=== PATIENT | female | born 1940 | race Caucasian/White ===

== ENCOUNTER 2017-09-23 11:44 | Emergency (ER) | payer OTHER ==
[~2017-09-23] VITALS: Ht 162.6 cm; Wt 60.0 kg
[~2017-09-23 11:44] MED LIST: ALPRAZOLAM0.25 M2 PO; ALPRAZOLAM0.5 MG PO; ALPRAZOLAM1 MG PO; ASPIRIN81 M2 PO; ATROVENT 00.5 MG/2.5 IH; BABY ASPIRIN81 M1 PO; BACTRIM,SEPT1 TABLET PO; BLINK BOTH EYES; BROVANA15 MCG/2 M IH; BUDESONIDE0.25 MG/2 IH; CEFTIN500 MG PO; CIPRO500 MG PO; CIPROFLOXACIN500 M1 PO; COMPAZINE10 MG PO; CRANBERRY200 MG PO; CRANBERRY300 MG PO; CYANOCOBALAM1000 MCG PO; DAILY VITAMIN1 EAC8 PO; DECADRON4 MG PO; DIAZEPAM5 MG PO; ENDOCET 5-3251 EACH PO; FENOFIBRATE160 M1 PO; FLAGYL500 MG PO; FUROSEMIDE20 MG PO; FUROSEMIDE40 MG PO; GEMFIBROZIL600 MG PO; GERITOL COMP1 TABLET PO; GUAIFENESIN WI120 ML PO; HEALTHY HEART1 EAC1 PO; IPRATROPIU0.2 MG/1 M IH; LASIX40 MG PO; LEVAQUIN250 MG PO; LISINOPRIL5 MG PO; LMTHF-PYRIDOXI1 EACH PO; LOPRESSOR25 MG PO; LOW DOSE ASPIRI81 M1 PO; Levaquin PO; MAGNESIUM SULFATE; METOPROLOL PO; METOPROLOL SUCC25 MG PO; METOPROLOL TART25 MG PO; METRONIDAZOLE500 MG PO; MULTIPLE VITAM1 EAC1 PO; Magnesium PO; NICOTINE PATCH1 EAC2 TD; NITROFURANTOIN100 M3 PO; NITROFURANTOIN100 MG PO; OMEPRAZOLE40 M1 PO; PERCOCET 5/31 TABLET PO; PLAVIX75 MG PO; PRAVACHOL20 MG PO; PRAVACHOL40 MG PO; PRAVASTATIN SOD40 MG PO; PRILOSEC40 MG PO; PROAIR HFA8.5 GM IH; PROVENTIL,2.5 MG/3 M IH; PULMICORT0.25 MG/1 IH; ROBITUSSIN AC,T10 ML PO; ST. JOSEPH ASPI81 MG PO; TARCEVA150 MG PO; TYLENOL EXTRA500 MG PO; URO-MAG140 MG PO; VALIUM5 MG PO; VITAMIN B-121000 MCG PO; VITAMIN B-6100 MG PO; VITAMIN D2000 INTUN PO; VITAMIN D33000 UNIT PO; XANAX0.5 MG PO; XANAX1 MG PO; ZANTAC150 MG PO; ZESTRIL5 MG PO; ZOFRAN4 MG PO; [UNRECOGNIZED DRUG - CODE] PO; predniSONE PO
[2017-09-23 12:07] VITALS: BP 91/56
[2017-09-23] MEDS ORDERED: DECADRON4 MG PO (22:43)
[2017-09-23] MEDS ORDERED: CARTIA XT120 MG PO (22:43)
[2017-09-23] MEDS ORDERED: BACTRIM,SEPT1 TABLE1 PO (22:43)
[2017-09-23] MEDS ORDERED: LOPRESSOR25 MG PO (22:44)
[2017-09-23] MEDS ORDERED: ASCORBIC ACID100 MG PO (22:46)
== END 2017-09-23 13:30 | disposition left against medical advice (07) ==
LOC: EME 11:44
DX: C34.90 Malignant neoplasm of unspecified part of unspecified bronchus or lung (principal); R26.9 Unspecified abnormalities of gait and mobility; R20.0 Anesthesia of skin; R29.810 Facial weakness; M79.604 Pain in right leg; Z92.3 Personal history of irradiation; Z53.21 Procedure and treatment not carried out due to patient leaving prior to being seen by health care provider
CPT/HCPCS: 99281

== ENCOUNTER 2017-09-23 14:58 | Inpatient (IN) | payer OTHER ==
[~2017-09-23] VITALS: Ht 160 cm; Wt 68.0 kg
[2017-09-23 17:12] LABS: HEMATOCRIT 37.8 % (36.0-46.0); MCH 29.8 PG (29.0-34.0); MCHC 33.1 G/DL (30.0-36.0); RBC DIS.WIDTH-CV 15.1 % (11.8-14.6); RBC DIS.WIDTH-SD 49.6 % (39-53); WHITE BLOOD COUNT 7.4 K/uL (4.1-10.2)
[2017-09-23 17:17] LABS: INTER. NORMALIZED RATIO 1.1
[2017-09-23 17:22] LABS: CHLORIDE 92 mEq/L (99-109); POTASSIUM 4.9 mEq/L (3.7-5.4); SODIUM 137 mEq/L (136-147)
[2017-09-23 17:23] LABS: HEMOGLOBIN 12.5 G/DL (11.9-15.5); MAGNESIUM 1.8 mg/dL (1.3-2.7)
[2017-09-23 17:24] LABS: GLUCOSE 272 mg/dL (70-99)
[2017-09-23 17:28] LABS: CREATININE 0.7 mg/dL (0.6-1.3); GFR ESTIMATE (CALCULATED) > 59 mL/min/
[2017-09-23 17:29] LABS: UREA NITROGEN (BUN) 31 mg/dL (9-23)
[2017-09-23 17:34] LABS: TROP-I INTERPRETATION NEGATIVE; TROPONIN-I 0.07 ng/mL (0.0-0.30)
[2017-09-23 17:54] LABS: ABS NEUTROPHIL COUNT 7.1; ANISOCYTOSIS 1+; BAND NEUTROPHILS 18.3 % (0-8.0); EOSINOPHIL ABS CT 0; LYMPHOCYTES 1.7 % (15.0-45.0); MONOCYTES 2.6 % (0-9.0); PLAT.SUFFICIENCY VERY DECREASED; SEG.NEUTROPHILS 77.4 % (46.0-76.0)
[2017-09-23 17:55] LABS: PLATELET COUNT 45 K/uL (156-360)
[2017-09-23] MEDS ORDERED: DECADRON4 MG PO (22:43)
[2017-09-23] MEDS ORDERED: BACTRIM,SEPT1 TABLE1 PO (22:43)
[2017-09-23] MEDS ORDERED: CARTIA XT120 MG PO (22:43)
[2017-09-23] MEDS ORDERED: LOPRESSOR25 MG PO (22:44)
[2017-09-23] MEDS ORDERED: ASCORBIC ACID100 MG PO (22:46)
[2017-09-24 05:10] VITALS: BP 107/57
[2017-09-24 05:45] LABS: HEMATOCRIT 38.7 % (36.0-46.0); MCH 28.6 PG (29.0-34.0); MCV 92.1 FL (83-99); RBC DIS.WIDTH-CV 15.3 % (11.8-14.6); RBC DIS.WIDTH-SD 51.9 % (39-53); WHITE BLOOD COUNT 7.2 K/uL (4.1-10.2)
[2017-09-24 05:57] LABS: IMM.PLATELET FRACTION 5.1 (1-7); PLATELET COUNT 50 K/uL (156-360)
[2017-09-24 06:00] LABS: APPEARANCE CLOUDY ((CLEAR)); BILIRUBIN NEGATIVE; BLOOD SMALL; COLOR YELLOW ((YELLOW)); GLUCOSE (STRIP) 50; KETONES NEGATIVE; LEUKOCYTES LARGE; NITRITE NEGATIVE; PROTEIN (STRIP) 100
[2017-09-24 06:19] LABS: CHLORIDE 100 MEQ/L (99-109); CREATININE 0.6 MG/DL (0.6-1.3); GFR ESTIMATE (CALCULATED) > 59 mL/min/; SODIUM 143 MEQ/L (136-147); UREA NITROGEN (BUN) 32 mg/dL (9-23)
[2017-09-24 06:22] LABS: GLUCOSE 133 mg/dL (70-99)
[2017-09-24 06:41] LABS: SPECIFIC GRAVITY 1.059 (1.000-1.030)
[2017-09-24 06:56] LABS: BACTERIA 2+ /HPF; CALCIUM OXALATE CRYSTALS 3+ /HPF; CALCIUM PHOSPHATE CRYSTALS 2+; EPITHELIAL CELLS NONE SEEN /HPF; MUCUS TRACE /LPF; RED BLOOD CELLS TNTC /HPF (0-5); TRIPLE PHOSPHATE CRYSTALS 2+ /HPF; WHITE BLOOD CELLS TNTC /HPF (0-5)
[2017-09-24 11:05] VITALS: BP 101/55
[2017-09-24 16:49] VITALS: BP 103/61
[2017-09-24 19:10] VITALS: BP 102/55
[2017-09-24 23:07] VITALS: BP 113/62
[2017-09-25 03:11] VITALS: BP 112/55
[2017-09-25 05:32] LABS: HEMATOCRIT 37.4 % (36.0-46.0); HEMOGLOBIN 11.9 G/DL (11.9-15.5); MCH 29.4 PG (29.0-34.0); MCHC 31.8 G/DL (30.0-36.0); MCV 92.3 FL (83-99); RBC DIS.WIDTH-CV 15.5 % (11.8-14.6); RBC DIS.WIDTH-SD 52.7 % (39-53); RED BLOOD COUNT 4.05 M/uL (3.80-5.20); WHITE BLOOD COUNT 6.7 K/uL (4.1-10.2)
[2017-09-25 06:01] LABS: CHLORIDE 97 MEQ/L (99-109); CREATININE 0.5 MG/DL (0.6-1.3); GFR ESTIMATE (CALCULATED) > 59 mL/min/; GLUCOSE 201 mg/dL (70-99); POTASSIUM 5.6 MEQ/L (3.7-5.4); SODIUM 141 MEQ/L (136-147); UREA NITROGEN (BUN) 35 mg/dL (9-23)
[2017-09-25 06:43] LABS: IMM.PLATELET FRACTION 4.9 (1-7); PLATELET COUNT 41 K/uL (156-360)
[2017-09-25 06:44] LABS: PLAT.SUFFICIENCY DECREASED
[2017-09-25 07:15] VITALS: BP 141/58
[2017-09-25 11:25] VITALS: BP 109/56
[2017-09-25 11:49] LABS: CHLORIDE 94 MEQ/L (99-109); POTASSIUM 5.3 MEQ/L (3.7-5.4); SODIUM 139 MEQ/L (136-147)
[2017-09-25 12:00] LABS: CREATININE 0.6 MG/DL (0.6-1.3); GFR ESTIMATE (CALCULATED) > 59 mL/min/; UREA NITROGEN (BUN) 41 mg/dL (9-23)
[2017-09-25 12:04] LABS: GLUCOSE 375 mg/dL (70-99)
[2017-09-25 15:55] VITALS: BP 87/49
[2017-09-25 20:00] VITALS: BP 96/55
[2017-09-25 23:54] VITALS: BP 90/55
[2017-09-26 03:52] VITALS: BP 88/53
[2017-09-26 05:32] LABS: HEMOGLOBIN 11.3 G/DL (11.9-15.5); MCH 28.7 PG (29.0-34.0); MCHC 31.4 G/DL (30.0-36.0); MCV 91.4 FL (83-99); RBC DIS.WIDTH-CV 15.4 % (11.8-14.6); RBC DIS.WIDTH-SD 51.6 % (39-53); RED BLOOD COUNT 3.94 M/uL (3.80-5.20); WHITE BLOOD COUNT 6.7 K/uL (4.1-10.2)
[2017-09-26 06:15] LABS: CHLORIDE 91 MEQ/L (99-109); CREATININE 0.7 MG/DL (0.6-1.3); GFR ESTIMATE (CALCULATED) > 59 mL/min/; GLUCOSE 375 mg/dL (70-99); POTASSIUM 5.1 MEQ/L (3.7-5.4); SODIUM 139 MEQ/L (136-147); UREA NITROGEN (BUN) 44 mg/dL (9-23)
[2017-09-26 06:59] LABS: IMM.PLATELET FRACTION 5.8 (1-7); PLAT.SUFFICIENCY DECREASED; PLATELET COUNT 43 K/uL (156-360)
[2017-09-26 08:22] VITALS: BP 108/71
[2017-09-26 11:05] VITALS: BP 92/56
[2017-09-26 15:55] VITALS: BP 88/57
[2017-09-26 20:00] VITALS: BP 108/69
[2017-09-27 00:54] VITALS: BP 111/54
[2017-09-27 04:10] VITALS: BP 94/52
[2017-09-27 07:15] VITALS: BP 104/56
[2017-09-27 12:13] VITALS: BP 94/51
[2017-09-27 15:52] VITALS: BP 102/74
[2017-09-27 19:00] VITALS: BP 98/53
[2017-09-28 00:13] VITALS: BP 99/58
[2017-09-28 03:34] VITALS: BP 95/55
[2017-09-28 08:13] VITALS: BP 114/61
[2017-09-28 08:44] LABS: BASOPHIL (%) 0.3 % (0-1); EOSINOPHIL (%) 0 % (0-5); HEMATOCRIT 35.1 % (36.0-46.0); HEMOGLOBIN 11.1 G/DL (11.9-15.5); IMMATURE GRANULOCYTE (%) 2.3 % (0.0-0.7); LYMPHOCYTE (%) 1.4 % (15-42); LYMPHOCYTE COUNT 0.1 K/uL (1.0-2.8); MCHC 31.6 G/DL (30.0-36.0); MCV 94.9 FL (83-99); MONOCYTE (%) 4.3 % (3-12); MONOCYTE COUNT 0.3 K/uL (0-0.8); NEUTROPHIL (%) 91.7 % (45-76); NEUTROPHIL COUNT 6.3 K/uL (1.8-6.4); RBC DIS.WIDTH-CV 15.1 % (11.8-14.6); RBC DIS.WIDTH-SD 52.6 % (39-53); WHITE BLOOD COUNT 6.9 K/uL (4.1-10.2)
[2017-09-28 09:44] LABS: IMM.PLATELET FRACTION 5.1 (1-7); PLAT.SUFFICIENCY DECREASED; PLATELET COUNT 45 K/uL (156-360)
[2017-09-28 11:00] VITALS: BP 97/56
[2017-09-28 15:55] VITALS: BP 95/53
[2017-09-28 19:00] VITALS: BP 108/56
[2017-09-29 00:11] VITALS: BP 115/64
[2017-09-29 05:31] VITALS: BP 120/62
[2017-09-29 09:04] VITALS: BP 115/48
[2017-09-29 11:10] LABS: BASOPHIL (%) 0.3 % (0-1); EOSINOPHIL (%) 0 % (0-5); HEMATOCRIT 34.9 % (36.0-46.0); IMMATURE GRANULOCYTE (%) 1.9 % (0.0-0.7); LYMPHOCYTE (%) 2.1 % (15-42); LYMPHOCYTE COUNT 0.2 K/uL (1.0-2.8); MCH 29.5 PG (29.0-34.0); MCHC 31.5 G/DL (30.0-36.0); MCV 93.6 FL (83-99); MONOCYTE COUNT 0.3 K/uL (0-0.8); NEUTROPHIL (%) 91.7 % (45-76); NEUTROPHIL COUNT 6.9 K/uL (1.8-6.4); RBC DIS.WIDTH-CV 15.1 % (11.8-14.6); RBC DIS.WIDTH-SD 51.9 % (39-53); RED BLOOD COUNT 3.73 M/uL (3.80-5.20); WHITE BLOOD COUNT 7.5 K/uL (4.1-10.2)
[2017-09-29 11:41] LABS: CHLORIDE 89 MEQ/L (99-109); CREATININE 0.5 MG/DL (0.6-1.3); GFR ESTIMATE (CALCULATED) > 59 mL/min/; POTASSIUM 5.2 MEQ/L (3.7-5.4); SODIUM 140 MEQ/L (136-147); UREA NITROGEN (BUN) 45 mg/dL (9-23)
[2017-09-29 11:45] VITALS: BP 117/60
[2017-09-29 11:45] LABS: CARBON DIOXIDE (BICARBONATE) > 40.0 MEQ/L (20-31); GLUCOSE 436 mg/dL (70-99)
[2017-09-29 11:49] LABS: IMM.PLATELET FRACTION 4.5 (1-7); PLAT.SUFFICIENCY VERY DECREASED; PLATELET COUNT 44 K/uL (156-360)
[2017-09-29 12:08] LABS: BASE EXCESS 23.1 mEq/L (-3 to +3); CARBOXY HGB 2.2 % (0-5); METHEMOGLOBIN 1.3 % (0-1.5); PCO2 82 mm Hg (35-45); PO2 67 mm Hg (80-100); pH 7.41 (7.35-7.45)
[2017-09-29 12:09] LABS: COMMENTS - BLOOD GASES A+C+; DEVICE NC; O2 FLOW 3 L/MIN; SITE LR; TOTAL RESP RATE 25 resp/min
[2017-09-29 13:09] LABS: Estimated Average Glucose 180 mg/dL (70-123); HEMOGLOBIN A1c (GLYCOHEMOGLOB) 7.9 % HGB (Below 5.7)
[2017-09-29 15:33] VITALS: BP 114/67
[2017-09-29 19:20] VITALS: BP 105/58
[2017-09-30] VITALS (7 sets, daily range): BP systolic 101–149; BP diastolic 55–78
[2017-10-01] VITALS (20 sets, daily range): BP systolic 78–128; BP diastolic 48–82
[2017-10-01 01:49] LABS: HEMATOCRIT 35.3 % (36.0-46.0); HEMOGLOBIN 11.2 G/DL (11.9-15.5); MCH 29.2 PG (29.0-34.0); MCHC 31.7 G/DL (30.0-36.0); MCV 92.2 FL (83-99); PLATELET COUNT 51 K/uL (156-360); RBC DIS.WIDTH-CV 15.1 % (11.8-14.6); RBC DIS.WIDTH-SD 51.2 % (39-53); RED BLOOD COUNT 3.83 M/uL (3.80-5.20)
[2017-10-01 01:58] LABS: CHLORIDE 85 mEq/L (99-109); POTASSIUM 5.3 mEq/L (3.7-5.4); SODIUM 138 mEq/L (136-147)
[2017-10-01 02:00] LABS: TOTAL PROTEIN 5.1 g/dL (6.4-8.3)
[2017-10-01 02:01] LABS: GLUCOSE 207 mg/dL (70-99)
[2017-10-01 02:02] LABS: TOTAL BILIRUBIN 0.5 mg/dL (0.0-1.0)
[2017-10-01 02:04] LABS: ALKALINE PHOSPHATASE 63 IU/L (3-129); CREATININE 0.7 mg/dL (0.6-1.3); GFR ESTIMATE (CALCULATED) > 59 mL/min/
[2017-10-01 02:05] LABS: AST (GOT) 22 IU/L (2-34); UREA NITROGEN (BUN) 42 mg/dL (9-23)
[2017-10-01 02:07] LABS: ALT (GPT) 45 IU/L (3-49)
[2017-10-01 02:08] LABS: CARBON DIOXIDE (BICARBONATE) > 40.0 mEq/L (20-31)
[2017-10-01 02:12] LABS: TROP-I INTERPRETATION NEGATIVE; TROPONIN-I 0.26 ng/mL (0.0-0.30)
[2017-10-01 02:23] LABS: ABS NEUTROPHIL COUNT 9.4; ANISOCYTOSIS 1+; BAND NEUTROPHILS 20.9 % (0-8.0); EOSINOPHIL ABS CT 0; HYPOCHROMASIA 1+; LYMPHOCYTES 1.7 % (15.0-45.0); METAMYELOCYTES 1.7 %; MONOCYTES 0.9 % (0-9.0); MYELOCYTES 1.7 %; OVALOCYTES 1+; PLAT.SUFFICIENCY VERY DECREASED; POLYCHROMASIA 1+; SEG.NEUTROPHILS 73.1 % (46.0-76.0)
[2017-10-02] VITALS (23 sets, daily range): BP systolic 73–112; BP diastolic 40–70
[2017-10-02 05:44] LABS: BASE EXCESS 14.2 mEq/L (-3 to +3); CARBOXY HGB 1.4 % (0-5); METHEMOGLOBIN 0.9 % (0-1.5)
[2017-10-02 05:45] LABS: BICARBONATE 37.6 mEq/L (22-26); DEVICE VENT; FI02 45 %; MECHANICAL RATE 18 resp/min; MODE ACVC; PCO2 41 mm Hg (35-45); PEEP 5 CM/H20; PO2 156 mm Hg (80-100); SITE LR; TIDAL VOLUME 400 ML; TOTAL RESP RATE 18 resp/min; pH 7.57 (7.35-7.45)
[2017-10-02 05:45] LABS: BASOPHIL (%) 0.1 % (0-1); EOSINOPHIL (%) 0 % (0-5); HEMATOCRIT 28.8 % (36.0-46.0); HEMOGLOBIN 9.6 G/DL (11.9-15.5); IMMATURE GRANULOCYTE (%) 1.9 % (0.0-0.7); LYMPHOCYTE (%) 2.2 % (15-42); LYMPHOCYTE COUNT 0.2 K/uL (1.0-2.8); MCH 28.7 PG (29.0-34.0); MCHC 33.3 G/DL (30.0-36.0); MONOCYTE (%) 3.9 % (3-12); MONOCYTE COUNT 0.3 K/uL (0-0.8); NEUTROPHIL (%) 91.9 % (45-76); NEUTROPHIL COUNT 6.3 K/uL (1.8-6.4); RBC DIS.WIDTH-CV 15.9 % (11.8-14.6); RBC DIS.WIDTH-SD 49.8 % (39-53); RED BLOOD COUNT 3.34 M/uL (3.80-5.20); WHITE BLOOD COUNT 6.8 K/uL (4.1-10.2)
[2017-10-02 05:55] LABS: MCV 86.2 FL (83-99)
[2017-10-02 05:56] LABS: CHLORIDE 93 MEQ/L (99-109); CREATININE 0.8 MG/DL (0.6-1.3); GFR ESTIMATE (CALCULATED) > 59 mL/min/; GLUCOSE 220 mg/dL (70-99); MAGNESIUM 2.1 mg/dl (1.3-2.7); PHOSPHORUS 3.9 mg/dL (2.5-4.9); SODIUM 137 MEQ/L (136-147); UREA NITROGEN (BUN) 43 mg/dL (9-23)
[2017-10-02 05:57] LABS: POTASSIUM 3.4 MEQ/L (3.7-5.4)
[2017-10-02 06:46] LABS: IMM.PLATELET FRACTION 4.9 (1-7); PLAT.SUFFICIENCY VERY DECREASED; PLATELET COUNT 43 K/uL (156-360)
[2017-10-02 14:30] LABS: BASE EXCESS 14.9 mEq/L (-3 to +3); BICARBONATE 40.2 mEq/L (22-26); CARBOXY HGB 1.7 % (0-5); COMMENTS - BLOOD GASES A+C+; DEVICE 980; METHEMOGLOBIN 2.3 % (0-1.5); PCO2 54 mm Hg (35-45); PO2 174 mm Hg (80-100); SITE RR; pH 7.48 (7.35-7.45)
[2017-10-02 14:31] LABS: FI02 45 %; MECHANICAL RATE 12 resp/min; MODE AC; PEEP 5 CM/H20; TIDAL VOLUME 350 ML
[2017-10-03] VITALS (26 sets, daily range): BP systolic 0–137; BP diastolic 0–67
[2017-10-03 11:21] LABS: BASOPHIL (%) 0.1 % (0-1); EOSINOPHIL (%) 0 % (0-5); HEMATOCRIT 30.8 % (36.0-46.0); IMMATURE GRANULOCYTE (%) 3.7 % (0.0-0.7); LYMPHOCYTE COUNT 0.2 K/uL (1.0-2.8); MCH 29.2 PG (29.0-34.0); MCHC 32.5 G/DL (30.0-36.0); MCV 89.8 FL (83-99); MONOCYTE (%) 5.8 % (3-12); MONOCYTE COUNT 0.6 K/uL (0-0.8); NEUTROPHIL (%) 88.4 % (45-76); NEUTROPHIL COUNT 8.6 K/uL (1.8-6.4); RBC DIS.WIDTH-CV 15.8 % (11.8-14.6); RED BLOOD COUNT 3.43 M/uL (3.80-5.20); WHITE BLOOD COUNT 9.7 K/uL (4.1-10.2)
[2017-10-03 11:47] LABS: CHLORIDE 97 MEQ/L (99-109); CREATININE 0.7 MG/DL (0.6-1.3); GFR ESTIMATE (CALCULATED) > 59 mL/min/; GLUCOSE 238 mg/dL (70-99); SODIUM 138 MEQ/L (136-147); UREA NITROGEN (BUN) 42 mg/dL (9-23)
[2017-10-03 11:52] LABS: ANISOCYTOSIS 1+; IMM.PLATELET FRACTION 5.4 (1-7); PLAT.SUFFICIENCY DECREASED; PLATELET COUNT 48 K/uL (156-360); POIKILOCYTOSIS 1+
[2017-10-03 11:54] LABS: POTASSIUM 5.3 MEQ/L (3.7-5.4)
[2017-10-04] VITALS (24 sets, daily range): BP systolic 89–137; BP diastolic 46–83
[2017-10-04 10:24] LABS: HEMATOCRIT 31.6 % (36.0-46.0); HEMOGLOBIN 10.3 G/DL (11.9-15.5); MCH 29.9 PG (29.0-34.0); MCHC 32.6 G/DL (30.0-36.0); MCV 91.9 FL (83-99); PLATELET COUNT 55 K/uL (156-360); RBC DIS.WIDTH-CV 15.2 % (11.8-14.6); RBC DIS.WIDTH-SD 50.4 % (39-53); RED BLOOD COUNT 3.44 M/uL (3.80-5.20); WHITE BLOOD COUNT 11.9 K/uL (4.1-10.2)
[2017-10-04 10:47] LABS: CHLORIDE 97 MEQ/L (99-109); CREATININE 0.6 MG/DL (0.6-1.3); GFR ESTIMATE (CALCULATED) > 59 mL/min/; GLUCOSE 296 mg/dL (70-99); POTASSIUM 4.6 MEQ/L (3.7-5.4); SODIUM 136 MEQ/L (136-147); UREA NITROGEN (BUN) 42 mg/dL (9-23)
[2017-10-04 10:57] LABS: ABS NEUTROPHIL COUNT 10.6; ANISOCYTOSIS 1+; BAND NEUTROPHILS 2.6 % (0-8.0); EOSINOPHIL ABS CT 0; METAMYELOCYTES 0.9 %; MICROCYTOSIS 1+; MONOCYTES 5.3 % (0-9.0); MYELOCYTES 4.4 %; PLAT.SUFFICIENCY DECREASED; SEG.NEUTROPHILS 86.8 % (46.0-76.0)
[2017-10-04 23:15] LABS: BASE EXCESS 14.2 mEq/L (-3 to +3); BICARBONATE 40.9 mEq/L (22-26); CARBOXY HGB 1.2 % (0-5); METHEMOGLOBIN 1.6 % (0-1.5); pH 7.42 (7.35-7.45)
[2017-10-04 23:16] LABS: COMMENTS - BLOOD GASES C+; DEVICE VENT; FI02 100 %; MECHANICAL RATE 20 resp/min; MODE AC; PCO2 63 mm Hg (35-45); PEEP 5 CM/H20; PO2 457 mm Hg (80-100); SITE RR; TIDAL VOLUME 400 ML; TOTAL RESP RATE 20 resp/min
[2017-10-05] VITALS (22 sets, daily range): BP systolic 80–111; BP diastolic 48–69
[2017-10-05 10:43] LABS: HEMATOCRIT 28.7 % (36.0-46.0); HEMOGLOBIN 9.6 G/DL (11.9-15.5); MCH 29.5 PG (29.0-34.0); MCHC 33.4 G/DL (30.0-36.0); MCV 88.3 FL (83-99); NRBC (%) 0.2 /100 WBC (0-0); PLATELET COUNT 58 K/uL (156-360); RBC DIS.WIDTH-CV 14.6 % (11.8-14.6); RBC DIS.WIDTH-SD 47.2 % (39-53); RED BLOOD COUNT 3.25 M/uL (3.80-5.20)
[2017-10-05 10:48] LABS: ALBUMIN 2.7 G/DL (3.2-4.8); ALKALINE PHOSPHATASE 48 IU/L (3-129); ALT (GPT) 65 IU/L (3-49); AST (GOT) 26 IU/L (2-34); CHLORIDE 96 MEQ/L (99-109); CREATININE 0.5 MG/DL (0.6-1.3); GFR ESTIMATE (CALCULATED) > 59 mL/min/; GLUCOSE 200 mg/dL (70-99); POTASSIUM 3.9 MEQ/L (3.7-5.4); SODIUM 141 MEQ/L (136-147); TOTAL BILIRUBIN 0.7 MG/DL (0.0-1.0); TOTAL PROTEIN 4.8 G/DL (6.4-8.3); UREA NITROGEN (BUN) 45 mg/dL (9-23)
[2017-10-05 11:23] LABS: DIGOXIN 1.1 ng/mL (0.8-2.0)
[2017-10-05 11:35] LABS: ABS NEUTROPHIL COUNT 8.4; ANISOCYTOSIS 1+; ATYPICAL LYMPHOCYTE 0.9 %; BAND NEUTROPHILS 12.3 % (0-8.0); EOSINOPHIL ABS CT 0; LYMPHOCYTES 1.7 % (15.0-45.0); METAMYELOCYTES 0.9 %; MICROCYTOSIS 1+; MONOCYTES 3.5 % (0-9.0); NUCLEATED RBC'S 0.9; PLAT.SUFFICIENCY DECREASED; POIKILOCYTOSIS 1+; SEG.NEUTROPHILS 80.7 % (46.0-76.0)
[2017-10-06] VITALS (25 sets, daily range): BP systolic 80–126; BP diastolic 49–68
[2017-10-06 09:49] LABS: HEMATOCRIT 26.6 % (36.0-46.0); HEMOGLOBIN 8.9 G/DL (11.9-15.5); MCH 29.9 PG (29.0-34.0); MCHC 33.5 G/DL (30.0-36.0); MCV 89.3 FL (83-99); NRBC (%) 0.2 /100 WBC (0-0); PLATELET COUNT 54 K/uL (156-360); RBC DIS.WIDTH-CV 15.6 % (11.8-14.6); RBC DIS.WIDTH-SD 50.4 % (39-53); RED BLOOD COUNT 2.98 M/uL (3.80-5.20); WHITE BLOOD COUNT 8.8 K/uL (4.1-10.2)
[2017-10-06 10:52] LABS: CHLORIDE 104 MEQ/L (99-109); CREATININE 0.4 MG/DL (0.6-1.3); GFR ESTIMATE (CALCULATED) > 59 mL/min/; GLUCOSE 178 mg/dL (70-99); POTASSIUM 3.6 MEQ/L (3.7-5.4); SODIUM 143 MEQ/L (136-147); UREA NITROGEN (BUN) 36 mg/dL (9-23)
[2017-10-06 11:34] LABS: PHOSPHORUS 3.7 mg/dL (2.5-4.9)
[2017-10-07] VITALS (24 sets, daily range): BP systolic 100–136; BP diastolic 53–88
[2017-10-07 09:59] LABS: HEMATOCRIT 25.9 % (36.0-46.0); HEMOGLOBIN 8.6 G/DL (11.9-15.5); MCH 29.9 PG (29.0-34.0); MCHC 33.2 G/DL (30.0-36.0); MCV 89.9 FL (83-99); NRBC (%) 0.2 /100 WBC (0-0); PLATELET COUNT 63 K/uL (156-360); RBC DIS.WIDTH-CV 15.9 % (11.8-14.6); RBC DIS.WIDTH-SD 51.8 % (39-53); RED BLOOD COUNT 2.88 M/uL (3.80-5.20); WHITE BLOOD COUNT 9.1 K/uL (4.1-10.2)
[2017-10-07 10:12] LABS: CHLORIDE 110 mEq/L (99-109); SODIUM 140 mEq/L (136-147)
[2017-10-07 10:13] LABS: MAGNESIUM 1.8 mg/dL (1.3-2.7)
[2017-10-07 10:16] LABS: GLUCOSE 283 mg/dL (70-99)
[2017-10-07 10:18] LABS: CREATININE 0.6 mg/dL (0.6-1.3); GFR ESTIMATE (CALCULATED) > 59 mL/min/; PHOSPHORUS 3.4 mg/dL (2.5-4.9)
[2017-10-07 10:19] LABS: UREA NITROGEN (BUN) 34 mg/dL (9-23)
[2017-10-07 10:24] LABS: ABS NEUTROPHIL COUNT 8.4; ATYPICAL LYMPHOCYTE 1.8 %; BAND NEUTROPHILS 6.3 % (0-8.0); EOSINOPHIL ABS CT 0; LYMPHOCYTES 2.7 % (15.0-45.0); METAMYELOCYTES 0.9 %; MONOCYTES 1.8 % (0-9.0); PLAT.SUFFICIENCY DECREASED; SEG.NEUTROPHILS 86.5 % (46.0-76.0); SMUDGE CELLS 5.4
[2017-10-08] VITALS (27 sets, daily range): BP systolic 0–173; BP diastolic 0–91
[2017-10-08 05:53] LABS: HEMATOCRIT 25.9 % (36.0-46.0); HEMOGLOBIN 8.5 G/DL (11.9-15.5); MCH 29.6 PG (29.0-34.0); MCHC 32.8 G/DL (30.0-36.0); MCV 90.2 FL (83-99); NRBC (%) 0.5 /100 WBC (0-0); PLATELET COUNT 76 K/uL (156-360); RBC DIS.WIDTH-SD 52.3 % (39-53); RED BLOOD COUNT 2.87 M/uL (3.80-5.20); WHITE BLOOD COUNT 9.9 K/uL (4.1-10.2)
[2017-10-08 06:15] LABS: CHLORIDE 109 MEQ/L (99-109); CREATININE 0.4 MG/DL (0.6-1.3); GFR ESTIMATE (CALCULATED) > 59 mL/min/; GLUCOSE 248 mg/dL (70-99); POTASSIUM 4.3 MEQ/L (3.7-5.4); SODIUM 141 MEQ/L (136-147); UREA NITROGEN (BUN) 34 mg/dL (9-23)
[2017-10-08 06:18] LABS: MAGNESIUM 2.8 mg/dl (1.3-2.7)
[2017-10-08 06:24] LABS: ABS NEUTROPHIL COUNT 8.9; ANISOCYTOSIS 1+; BAND NEUTROPHILS 3.5 % (0-8.0); BASOPHILS 1.7 %; BURR CELLS 1+; EOSINOPHIL ABS CT 0.1; EOSINOPHILS 0.9 % (0-5.0); LYMPHOCYTES 0.9 % (15.0-45.0); MICROCYTOSIS 1+; MONOCYTES 3.5 % (0-9.0); MYELOCYTES 2.6 %; NUCLEATED RBC'S 3.5; OVALOCYTES 1+; PLAT.SUFFICIENCY DECREASED; POIKILOCYTOSIS 1+; SCHISTOCYTES 1+; SEG.NEUTROPHILS 86.9 % (46.0-76.0)
[2017-10-09] VITALS (24 sets, daily range): BP systolic 98–149; BP diastolic 48–80
[2017-10-09 05:14] LABS: BASE EXCESS 3.8 mEq/L (-3 to +3); BICARBONATE 29.1 mEq/L (22-26); CARBOXY HGB 1.7 % (0-5); COMMENTS - BLOOD GASES C+A+; DEVICE VENTILATOR; FI02 30 %; MECHANICAL RATE 20 resp/min; METHEMOGLOBIN 1.6 % (0-1.5); MODE AC; PCO2 47 mm Hg (35-45); PEEP 5 CM/H20; PO2 117 mm Hg (80-100); SITE RR; TIDAL VOLUME 400 ML; TOTAL RESP RATE 24 resp/min
[2017-10-09 05:38] LABS: CHLORIDE 108 mEq/L (99-109); POTASSIUM 4.8 mEq/L (3.7-5.4); SODIUM 138 mEq/L (136-147)
[2017-10-09 05:40] LABS: GLUCOSE 228 mg/dL (70-99)
[2017-10-09 05:44] LABS: CREATININE 0.7 mg/dL (0.6-1.3); GFR ESTIMATE (CALCULATED) > 59 mL/min/; PHOSPHORUS 3.3 mg/dL (2.5-4.9)
[2017-10-09 05:45] LABS: UREA NITROGEN (BUN) 43 mg/dL (9-23)
[2017-10-09 05:53] LABS: MAGNESIUM 2.2 mg/dL (1.3-2.7)
[2017-10-09 05:59] LABS: HEMATOCRIT 25.9 % (36.0-46.0); HEMOGLOBIN 8.6 G/DL (11.9-15.5); MCH 29.8 PG (29.0-34.0); MCHC 33.2 G/DL (30.0-36.0); MCV 89.6 FL (83-99); NRBC (%) 0.7 /100 WBC (0-0); PLATELET COUNT 82 K/uL (156-360); RBC DIS.WIDTH-SD 52.2 % (39-53); RED BLOOD COUNT 2.89 M/uL (3.80-5.20); WHITE BLOOD COUNT 11.6 K/uL (4.1-10.2)
[2017-10-09 06:55] LABS: ABS NEUTROPHIL COUNT 10.5; ANISOCYTOSIS 1+; BAND NEUTROPHILS 12.9 % (0-8.0); EOSINOPHIL ABS CT 0; LYMPHOCYTES 1.7 % (15.0-45.0); METAMYELOCYTES 2.6 %; MICROCYTOSIS 1+; MONOCYTES 3.5 % (0-9.0); MYELOCYTES 1.7 %; PLAT.SUFFICIENCY DECREASED; SEG.NEUTROPHILS 77.6 % (46.0-76.0)
[2017-10-10] VITALS (18 sets, daily range): BP systolic 91–111; BP diastolic 47–66
[2017-10-10 06:42] LABS: ALBUMIN 2.6 G/DL (3.2-4.8); ALKALINE PHOSPHATASE 59 IU/L (3-129); ALT (GPT) 68 IU/L (3-49); AST (GOT) 34 IU/L (2-34); CHLORIDE 103 MEQ/L (99-109); CREATININE 0.5 MG/DL (0.6-1.3); GFR ESTIMATE (CALCULATED) > 59 mL/min/; GLUCOSE 156 mg/dL (70-99); POTASSIUM 4.9 MEQ/L (3.7-5.4); SODIUM 141 MEQ/L (136-147); TOTAL BILIRUBIN 0.6 MG/DL (0.0-1.0); TOTAL PROTEIN 4.7 G/DL (6.4-8.3); UREA NITROGEN (BUN) 37 mg/dL (9-23)
[2017-10-10 06:43] LABS: MAGNESIUM 2.3 mg/dl (1.3-2.7); PHOSPHORUS 4.1 mg/dL (2.5-4.9)
[2017-10-10 06:57] LABS: HEMATOCRIT 26.9 % (36.0-46.0); HEMOGLOBIN 8.7 G/DL (11.9-15.5); MCH 29.2 PG (29.0-34.0); MCHC 32.3 G/DL (30.0-36.0); MCV 90.3 FL (83-99); NRBC (%) 0.3 /100 WBC (0-0); PLATELET COUNT 85 K/uL (156-360); RBC DIS.WIDTH-CV 16.4 % (11.8-14.6); RBC DIS.WIDTH-SD 52.6 % (39-53); RED BLOOD COUNT 2.98 M/uL (3.80-5.20); WHITE BLOOD COUNT 11.6 K/uL (4.1-10.2)
[2017-10-10 07:07] LABS: ANISOCYTOSIS 1+; EOSINOPHIL ABS CT 0; METAMYELOCYTES 4.3 %; MICROCYTOSIS 1+; MONOCYTES 0.9 % (0-9.0); PLAT.SUFFICIENCY VERY DECREASED; POIKILOCYTOSIS 1+; SEG.NEUTROPHILS 74.8 % (46.0-76.0)
[2017-10-11] VITALS (23 sets, daily range): BP systolic 85–137; BP diastolic 44–69
[2017-10-11 09:34] LABS: HEMATOCRIT 23.2 % (36.0-46.0); HEMOGLOBIN 7.9 G/DL (11.9-15.5); MCH 30.5 PG (29.0-34.0); MCHC 34.1 G/DL (30.0-36.0); MCV 89.6 FL (83-99); NRBC (%) 0.2 /100 WBC (0-0); PLATELET COUNT 76 K/uL (156-360); RBC DIS.WIDTH-CV 16.7 % (11.8-14.6); RBC DIS.WIDTH-SD 52.8 % (39-53); RED BLOOD COUNT 2.59 M/uL (3.80-5.20); WHITE BLOOD COUNT 9.5 K/uL (4.1-10.2)
[2017-10-11 10:13] LABS: BASOPHIL (%) 0.1 % (0-1); EOSINOPHIL (%) 0 % (0-5); LYMPHOCYTE (%) 2.1 % (15-42); LYMPHOCYTE COUNT 0.2 K/uL (1.0-2.8); MONOCYTE (%) 4.8 % (3-12); MONOCYTE COUNT 0.5 K/uL (0-0.8); NEUTROPHIL COUNT 8.4 K/uL (1.8-6.4)
[2017-10-11 10:41] LABS: CHLORIDE 100 MEQ/L (99-109); CREATININE 0.4 MG/DL (0.6-1.3); GFR ESTIMATE (CALCULATED) > 59 mL/min/; MAGNESIUM 2.1 mg/dl (1.3-2.7); PHOSPHORUS 3.3 mg/dL (2.5-4.9); POTASSIUM 4.3 MEQ/L (3.7-5.4); SODIUM 139 MEQ/L (136-147); UREA NITROGEN (BUN) 34 mg/dL (9-23)
[2017-10-11 10:43] LABS: GLUCOSE 266 mg/dL (70-99)
[2017-10-12] VITALS (24 sets, daily range): BP systolic 96–136; BP diastolic 50–91
[2017-10-12 05:43] LABS: HEMATOCRIT 23.7 % (36.0-46.0); HEMOGLOBIN 7.9 G/DL (11.9-15.5); MCH 29.8 PG (29.0-34.0); MCHC 33.3 G/DL (30.0-36.0); MCV 89.4 FL (83-99); NRBC (%) 0.2 /100 WBC (0-0); PLATELET COUNT 70 K/uL (156-360); RBC DIS.WIDTH-CV 16.8 % (11.8-14.6); RBC DIS.WIDTH-SD 52.7 % (39-53); RED BLOOD COUNT 2.65 M/uL (3.80-5.20); WHITE BLOOD COUNT 9.1 K/uL (4.1-10.2)
[2017-10-12 06:02] LABS: CHLORIDE 101 MEQ/L (99-109); CREATININE 0.4 MG/DL (0.6-1.3); GFR ESTIMATE (CALCULATED) > 59 mL/min/; GLUCOSE 254 mg/dL (70-99); PHOSPHORUS 3.2 mg/dL (2.5-4.9); SODIUM 144 MEQ/L (136-147); UREA NITROGEN (BUN) 33 mg/dL (9-23)
[2017-10-12 06:14] LABS: ABS NEUTROPHIL COUNT 8.8; ANISOCYTOSIS 1+; ATYPICAL LYMPHOCYTE 1.7 %; BAND NEUTROPHILS 26.3 % (0-8.0); BASOPHILS 0.9 %; EOSINOPHIL ABS CT 0; HYPOCHROMASIA 1+; MACROCYTES 1+; MICROCYTOSIS 1+; MONOCYTES 0.9 % (0-9.0); OVALOCYTES 1+; PLAT.SUFFICIENCY DECREASED; POIKILOCYTOSIS 1+; POLYCHROMASIA 1+; SEG.NEUTROPHILS 70.2 % (46.0-76.0)
[2017-10-13] VITALS (26 sets, daily range): BP systolic 98–135; BP diastolic 53–78
[2017-10-13 06:24] LABS: HEMATOCRIT 23.2 % (36.0-46.0); HEMOGLOBIN 7.5 G/DL (11.9-15.5); MCHC 32.3 G/DL (30.0-36.0); MCV 89.6 FL (83-99); NRBC (%) 0.5 /100 WBC (0-0); PLATELET COUNT 70 K/uL (156-360); RBC DIS.WIDTH-CV 17.1 % (11.8-14.6); RBC DIS.WIDTH-SD 53.2 % (39-53); RED BLOOD COUNT 2.59 M/uL (3.80-5.20); WHITE BLOOD COUNT 7.5 K/uL (4.1-10.2)
[2017-10-13 06:46] LABS: CHLORIDE 102 MEQ/L (99-109); CREATININE 0.4 MG/DL (0.6-1.3); GFR ESTIMATE (CALCULATED) > 59 mL/min/; GLUCOSE 241 mg/dL (70-99); MAGNESIUM 2.3 mg/dl (1.3-2.7); PHOSPHORUS 3.1 mg/dL (2.5-4.9); POTASSIUM 4.1 MEQ/L (3.7-5.4); SODIUM 145 MEQ/L (136-147); UREA NITROGEN (BUN) 32 mg/dL (9-23)
[2017-10-13 06:57] LABS: ABS NEUTROPHIL COUNT 7.4; ANISOCYTOSIS 1+; BAND NEUTROPHILS 27.2 % (0-8.0); EOSINOPHIL ABS CT 0; HYPOCHROMASIA 1+; MICROCYTOSIS 1+; MONOCYTES 0.9 % (0-9.0); OVALOCYTES 1+; PLAT.SUFFICIENCY DECREASED; SEG.NEUTROPHILS 71.9 % (46.0-76.0)
[2017-10-13 18:35] LABS: HEMATOCRIT 31.8 % (36.0-46.0); HEMOGLOBIN 10.6 G/DL (11.9-15.5); MCH 28.9 PG (29.0-34.0); MCHC 33.3 G/DL (30.0-36.0); MCV 86.6 FL (83-99); NRBC (%) 0.7 /100 WBC (0-0); PLATELET COUNT 68 K/uL (156-360); RBC DIS.WIDTH-CV 18.1 % (11.8-14.6); RBC DIS.WIDTH-SD 54.4 % (39-53); RED BLOOD COUNT 3.67 M/uL (3.80-5.20); WHITE BLOOD COUNT 8.3 K/uL (4.1-10.2)
[2017-10-13 23:58] LABS: BASE EXCESS 10.8 mEq/L (-3 to +3); CARBOXY HGB 2.4 % (0-5); METHEMOGLOBIN 1.1 % (0-1.5); PCO2 45 mm Hg (35-45)
[2017-10-13 23:59] LABS: BICARBONATE 35.1 mEq/L (22-26); COMMENTS - BLOOD GASES C+; DEVICE VENT; FI02 30 %; MECHANICAL RATE 20 resp/min; MODE AC; PEEP 5 CM/H20; PO2 63 mm Hg (80-100); SITE RR; TIDAL VOLUME 400 ML; TOTAL RESP RATE 20 resp/min
[2017-10-14] VITALS (39 sets, daily range): BP systolic 78–142; BP diastolic 52–79
[2017-10-14 00:47] LABS: HEMOGLOBIN 10.7 G/DL (11.9-15.5); MCHC 34.5 G/DL (30.0-36.0); MCV 86.8 FL (83-99); NRBC (%) 4.5 /100 WBC (0-0); PLATELET COUNT 68 K/uL (156-360); RBC DIS.WIDTH-CV 14.5 % (11.8-14.6); RBC DIS.WIDTH-SD 45.5 % (39-53); RED BLOOD COUNT 3.57 M/uL (3.80-5.20); WHITE BLOOD COUNT 4.2 K/uL (4.1-10.2)
[2017-10-14 00:55] LABS: INTER. NORMALIZED RATIO 1.2
[2017-10-14 00:57] LABS: CHLORIDE 107 mEq/L (99-109); SODIUM 146 mEq/L (136-147)
[2017-10-14 00:59] LABS: GLUCOSE 198 mg/dL (70-99)
[2017-10-14 01:03] LABS: CREATININE 0.5 mg/dL (0.6-1.3); GFR ESTIMATE (CALCULATED) > 59 mL/min/
[2017-10-14 01:04] LABS: UREA NITROGEN (BUN) 30 mg/dL (9-23)
[2017-10-14 01:17] LABS: PTT 19.8 SEC (25-37)
[2017-10-14 02:21] LABS: BICARBONATE 35.9 mEq/L (22-26); COMMENTS - BLOOD GASES C+; DEVICE VENT; FI02 30 %; MECHANICAL RATE 17 resp/min; METHEMOGLOBIN 1.3 % (0-1.5); MODE AC; PCO2 43 mm Hg (35-45); PO2 75 mm Hg (80-100); SITE RR; TOTAL RESP RATE 17 resp/min; pH 7.53 (7.35-7.45)
[2017-10-14 02:22] LABS: PEEP 5 CM/H20; TIDAL VOLUME 400 ML
[2017-10-14 03:01] LABS: HEMOGLOBIN 10.7 G/DL (11.9-15.5); MCV 86.4 FL (83-99)
[2017-10-14 06:47] LABS: HEMATOCRIT 33.9 % (36.0-46.0); HEMOGLOBIN 11.4 G/DL (11.9-15.5); MCH 29.9 PG (29.0-34.0); MCHC 33.6 G/DL (30.0-36.0); NRBC (%) 7.5 /100 WBC (0-0); RBC DIS.WIDTH-CV 14.6 % (11.8-14.6); RBC DIS.WIDTH-SD 47.1 % (39-53); RED BLOOD COUNT 3.81 M/uL (3.80-5.20); WHITE BLOOD COUNT 5.6 K/uL (4.1-10.2)
[2017-10-14 07:13] LABS: IMM.PLATELET FRACTION 4.3 (1-7); PLAT.SUFFICIENCY DECREASED; PLATELET COUNT 49 K/uL (156-360)
[2017-10-14 07:27] LABS: CHLORIDE 109 MEQ/L (99-109); CREATININE 0.4 MG/DL (0.6-1.3); GFR ESTIMATE (CALCULATED) > 59 mL/min/; GLUCOSE 154 mg/dL (70-99); PHOSPHORUS 3.8 mg/dL (2.5-4.9); POTASSIUM 4.4 MEQ/L (3.7-5.4); SODIUM 149 MEQ/L (136-147); UREA NITROGEN (BUN) 28 mg/dL (9-23)
[2017-10-14 07:38] LABS: MAGNESIUM 1.9 mg/dl (1.3-2.7)
[2017-10-14 13:04] LABS: HEMATOCRIT 30.2 % (36.0-46.0); HEMOGLOBIN 10.4 G/DL (11.9-15.5); MCH 30.6 PG (29.0-34.0); MCHC 34.4 G/DL (30.0-36.0); MCV 88.8 FL (83-99); NRBC (%) 5.3 /100 WBC (0-0); RBC DIS.WIDTH-CV 14.5 % (11.8-14.6); RBC DIS.WIDTH-SD 46.4 % (39-53); WHITE BLOOD COUNT 7.3 K/uL (4.1-10.2)
[2017-10-14 13:08] LABS: FIBRINOGEN 384 mg/dL (150-450)
[2017-10-14 13:09] LABS: INTER. NORMALIZED RATIO 1.2
[2017-10-14 13:11] LABS: PTT 25.2 SEC (25-37)
[2017-10-14 13:34] LABS: ABS NEUTROPHIL COUNT 6.9; ANISOCYTOSIS 1+; ATYPICAL LYMPHOCYTE 0.9 %; BAND NEUTROPHILS 18.2 % (0-8.0); EOSINOPHIL ABS CT 0; LYMPHOCYTES 2.7 % (15.0-45.0); METAMYELOCYTES 0.9 %; MICROCYTOSIS 1+; MYELOCYTES 0.9 %; NUCLEATED RBC'S 15.5; PLAT.SUFFICIENCY DECREASED; PLATELET COUNT 116 K/uL (156-360); SEG.NEUTROPHILS 76.4 % (46.0-76.0); SMUDGE CELLS 0.9
[2017-10-14 19:48] LABS: HEMATOCRIT 27.4 % (36.0-46.0); HEMOGLOBIN 9.2 G/DL (11.9-15.5); MCH 29.7 PG (29.0-34.0); MCHC 33.6 G/DL (30.0-36.0); MCV 88.4 FL (83-99); NRBC (%) 3.5 /100 WBC (0-0); PLATELET COUNT 101 K/uL (156-360); RBC DIS.WIDTH-CV 14.5 % (11.8-14.6); RBC DIS.WIDTH-SD 45.9 % (39-53); WHITE BLOOD COUNT 9.7 K/uL (4.1-10.2)
[2017-10-15] VITALS (31 sets, daily range): BP systolic 85–119; BP diastolic 47–71
[2017-10-15 05:54] LABS: ALBUMIN 2.5 G/DL (3.2-4.8); ALKALINE PHOSPHATASE 34 IU/L (3-129); ALT (GPT) 35 IU/L (3-49); AST (GOT) 17 IU/L (2-34); CHLORIDE 104 MEQ/L (99-109); CREATININE 0.4 MG/DL (0.6-1.3); DIRECT BILIRUBIN 0.6 mg/dL (0.0-0.3); GFR ESTIMATE (CALCULATED) > 59 mL/min/; GLUCOSE 130 mg/dL (70-99); MAGNESIUM 1.9 mg/dl (1.3-2.7); PHOSPHORUS 3.4 mg/dL (2.5-4.9); POTASSIUM 3.9 MEQ/L (3.7-5.4); SODIUM 147 MEQ/L (136-147); TOTAL PROTEIN 4.5 G/DL (6.4-8.3); UREA NITROGEN (BUN) 27 mg/dL (9-23)
[2017-10-15 05:57] LABS: HEMATOCRIT 21.8 % (36.0-46.0); HEMOGLOBIN 7.4 G/DL (11.9-15.5); MCH 30.3 PG (29.0-34.0); MCHC 33.9 G/DL (30.0-36.0); MCV 89.3 FL (83-99); NRBC (%) 2.6 /100 WBC (0-0); PLATELET COUNT 75 K/uL (156-360); RBC DIS.WIDTH-CV 14.4 % (11.8-14.6); RBC DIS.WIDTH-SD 46.4 % (39-53); WHITE BLOOD COUNT 9.2 K/uL (4.1-10.2)
[2017-10-15 05:58] LABS: RED BLOOD COUNT 2.44 M/uL (3.80-5.20)
[2017-10-15 08:46] LABS: TOTAL BILIRUBIN 0.9 MG/DL (0.0-1.0)
[2017-10-15 16:49] LABS: HEMATOCRIT 30.5 % (36.0-46.0); HEMOGLOBIN 10.4 G/DL (11.9-15.5); MCV 90.2 FL (83-99)
[2017-10-16] VITALS (19 sets, daily range): BP systolic 84–131; BP diastolic 51–77
[2017-10-16 04:43] LABS: HEMATOCRIT 32.2 % (36.0-46.0); MCH 30.6 PG (29.0-34.0); MCHC 34.2 G/DL (30.0-36.0); MCV 89.7 FL (83-99); NRBC (%) 2.7 /100 WBC (0-0); RBC DIS.WIDTH-CV 13.8 % (11.8-14.6); RBC DIS.WIDTH-SD 44.9 % (39-53); WHITE BLOOD COUNT 8.7 K/uL (4.1-10.2)
[2017-10-16 04:44] LABS: RED BLOOD COUNT 3.59 M/uL (3.80-5.20)
[2017-10-16 05:08] LABS: CHLORIDE 103 mEq/L (99-109); POTASSIUM 3.8 mEq/L (3.7-5.4); SODIUM 147 mEq/L (136-147)
[2017-10-16 05:10] LABS: GLUCOSE 147 mg/dL (70-99)
[2017-10-16 05:14] LABS: CREATININE 0.5 mg/dL (0.6-1.3); GFR ESTIMATE (CALCULATED) > 59 mL/min/
[2017-10-16 05:15] LABS: UREA NITROGEN (BUN) 23 mg/dL (9-23)
[2017-10-16 05:24] LABS: PLAT.SUFFICIENCY DECREASED; PLATELET COUNT 51 K/uL (156-360)
[2017-10-16 10:16] LABS: ABS NEUTROPHIL COUNT 8.3; EOSINOPHIL ABS CT 0
[2017-10-17] VITALS (25 sets, daily range): BP systolic 0–150; BP diastolic 0–115
[2017-10-17 10:58] LABS: CHLORIDE 102 MEQ/L (99-109); CREATININE 0.3 MG/DL (0.6-1.3); GFR ESTIMATE (CALCULATED) > 59 mL/min/; GLUCOSE 163 mg/dL (70-99); POTASSIUM 3.7 MEQ/L (3.7-5.4); SODIUM 145 MEQ/L (136-147); UREA NITROGEN (BUN) 27 mg/dL (9-23)
[2017-10-17 12:27] LABS: HEMATOCRIT 33.9 % (36.0-46.0); HEMOGLOBIN 11.2 G/DL (11.9-15.5); MCH 30.4 PG (29.0-34.0); MCV 91.9 FL (83-99); NRBC (%) 3.9 /100 WBC (0-0); RBC DIS.WIDTH-CV 13.8 % (11.8-14.6); RBC DIS.WIDTH-SD 46.5 % (39-53); RED BLOOD COUNT 3.69 M/uL (3.80-5.20); WHITE BLOOD COUNT 7.8 K/uL (4.1-10.2)
[2017-10-17 15:34] LABS: HEMATOLOGY COMMENT 1 SN; IMM.PLATELET FRACTION 8.2 (1-7); PLAT.SUFFICIENCY DECREASED; PLATELET COUNT 39 K/uL (156-360)
[2017-10-18] VITALS (24 sets, daily range): BP systolic 103–146; BP diastolic 58–94
[2017-10-18 04:48] LABS: HEMATOCRIT 34.1 % (36.0-46.0); HEMOGLOBIN 11.6 G/DL (11.9-15.5); MCV 91.2 FL (83-99); RBC DIS.WIDTH-CV 13.6 % (11.8-14.6); RBC DIS.WIDTH-SD 45.5 % (39-53); RED BLOOD COUNT 3.74 M/uL (3.80-5.20); WHITE BLOOD COUNT 6.7 K/uL (4.1-10.2)
[2017-10-18 05:01] LABS: CHLORIDE 100 mEq/L (99-109); POTASSIUM 3.4 mEq/L (3.7-5.4); SODIUM 143 mEq/L (136-147)
[2017-10-18 05:06] LABS: CREATININE 0.5 mg/dL (0.6-1.3); GFR ESTIMATE (CALCULATED) > 59 mL/min/; GLUCOSE 260 mg/dL (70-99)
[2017-10-18 05:07] LABS: UREA NITROGEN (BUN) 28 mg/dL (9-23)
[2017-10-18 06:23] LABS: IMM.PLATELET FRACTION 9.9 (1-7); PLAT.SUFFICIENCY VERY DECREASED; PLATELET COUNT 37 K/uL (156-360)
[2017-10-18 16:32] LABS: BASE EXCESS 15.3 mEq/L (-3 to +3); BICARBONATE 40.6 mEq/L (22-26); CARBOXY HGB 2.1 % (0-5); COMMENTS - BLOOD GASES A+C+; DEVICE 840; FI02 60 %; MECHANICAL RATE 10 resp/min; METHEMOGLOBIN 1.4 % (0-1.5); MODE SIMV; PCO2 52 mm Hg (35-45); PEEP 6.5 CM/H20; PO2 57 mm Hg (80-100); PRES. SUPPORT 15 CM/H2O; SITE RR; TIDAL VOLUME 350 ML; TOTAL RESP RATE 34 resp/min
[2017-10-19] VITALS (24 sets, daily range): BP systolic 91–142; BP diastolic 52–88
[2017-10-19 06:53] LABS: HEMOGLOBIN 10.1 G/DL (11.9-15.5); MCH 30.4 PG (29.0-34.0); MCHC 33.7 G/DL (30.0-36.0); MCV 90.4 FL (83-99); NRBC (%) 2.9 /100 WBC (0-0); RBC DIS.WIDTH-CV 13.3 % (11.8-14.6); RBC DIS.WIDTH-SD 44.5 % (39-53); RED BLOOD COUNT 3.32 M/uL (3.80-5.20); WHITE BLOOD COUNT 5.5 K/uL (4.1-10.2)
[2017-10-19 07:19] LABS: IMM.PLATELET FRACTION 9.2 (1-7); PLAT.SUFFICIENCY DECREASED; PLATELET COUNT 32 K/uL (156-360)
[2017-10-19 07:33] LABS: ALBUMIN 2.2 G/DL (3.2-4.8); ALT (GPT) 55 IU/L (3-49); AST (GOT) 19 IU/L (2-34); CHLORIDE 101 MEQ/L (99-109); CREATININE 0.2 MG/DL (0.6-1.3); GFR ESTIMATE (CALCULATED) > 59 mL/min/; MAGNESIUM 1.7 mg/dl (1.3-2.7); POTASSIUM 2.9 MEQ/L (3.7-5.4); SODIUM 145 MEQ/L (136-147); TOTAL BILIRUBIN 0.8 MG/DL (0.0-1.0); TOTAL PROTEIN 3.9 G/DL (6.4-8.3); UREA NITROGEN (BUN) 25 mg/dL (9-23)
[2017-10-19 07:43] LABS: ALKALINE PHOSPHATASE 91 IU/L (3-129); GLUCOSE 404 mg/dL (70-99); PHOSPHORUS 1.2 mg/dL (2.5-4.9)
[2017-10-20] VITALS (18 sets, daily range): BP systolic 76–141; BP diastolic 43–93
[2017-10-20 06:49] LABS: HEMATOCRIT 32.8 % (36.0-46.0); HEMOGLOBIN 10.6 G/DL (11.9-15.5); MCH 29.9 PG (29.0-34.0); MCHC 32.3 G/DL (30.0-36.0); MCV 92.7 FL (83-99); NRBC (%) 2.2 /100 WBC (0-0); RBC DIS.WIDTH-CV 13.8 % (11.8-14.6); RBC DIS.WIDTH-SD 47.6 % (39-53); RED BLOOD COUNT 3.54 M/uL (3.80-5.20); WHITE BLOOD COUNT 5.6 K/uL (4.1-10.2)
[2017-10-20 07:34] LABS: ALBUMIN 2.1 G/DL (3.2-4.8); ALKALINE PHOSPHATASE 99 IU/L (3-129); ALT (GPT) 66 IU/L (3-49); AST (GOT) 21 IU/L (2-34); CHLORIDE 102 MEQ/L (99-109); CREATININE 0.2 MG/DL (0.6-1.3); GFR ESTIMATE (CALCULATED) > 59 mL/min/; GLUCOSE 346 mg/dL (70-99); PHOSPHORUS 1.8 mg/dL (2.5-4.9); POTASSIUM 3.5 MEQ/L (3.7-5.4); SODIUM 148 MEQ/L (136-147); TOTAL BILIRUBIN 0.8 MG/DL (0.0-1.0); TOTAL PROTEIN 4.1 G/DL (6.4-8.3); UREA NITROGEN (BUN) 25 mg/dL (9-23)
[2017-10-20 07:37] LABS: IMM.PLATELET FRACTION 12.7 (1-7); PLAT.SUFFICIENCY VERY DECREASED; PLATELET COUNT 37 K/uL (156-360)
[2017-10-21] VITALS (12 sets, daily range): BP systolic 56–96; BP diastolic 36–56
== END 2017-10-21 16:12 | DRG 3 ==
LOC: EME 14:58 → EDOF 20:55 → ENRESERV 21:01 → 5WEST 22:38 → 4WEST 09-25 10:42 → ENRESERV 10-01 00:23 → 4WEST 10-01 00:45
PROVIDERS: Emergency Medicine; Hospitalist; Internal Medicine; Internal Medicine Critical Care Medicine; Internal Medicine Pulmonary Disease; Physician Assistant; Specialist; Surgery
PROC: 0BH17EZ Insertion of Endotracheal Airway into Trachea, Via Natural or Artificial Opening (ICD-10-PCS; principal; 2017-10-01)
PROC: 5A1945Z Respiratory Ventilation, 24-96 Consecutive Hours (ICD-10-PCS; principal; 2017-10-01)
PROC: 07TP0ZZ Resection of Spleen, Open Approach (ICD-10-PCS; 2017-10-01)
PROC: 5A1935Z Respiratory Ventilation, Less than 24 Consecutive Hours (ICD-10-PCS; 2017-10-01)
PROC: 30233N1 Transfusion of Nonautologous Red Blood Cells into Peripheral Vein, Percutaneous Approach (ICD-10-PCS; 2017-10-01)
PROC: 0BH17EZ Insertion of Endotracheal Airway into Trachea, Via Natural or Artificial Opening (ICD-10-PCS; 2017-10-04)
PROC: 30230R1 Transfusion of Nonautologous Platelets into Peripheral Vein, Open Approach (ICD-10-PCS; 2017-10-13)
PROC: 30233M1 Transfusion of Nonautologous Plasma Cryoprecipitate into Peripheral Vein, Percutaneous Approach (ICD-10-PCS; 2017-10-13)
PROC: 30230N1 Transfusion of Nonautologous Red Blood Cells into Peripheral Vein, Open Approach (ICD-10-PCS; 2017-10-13)
PROC: 3E0G76Z Introduction of Nutritional Substance into Upper GI, Via Natural or Artificial Opening (ICD-10-PCS; 2017-10-17)
PROC: 3E0H3GC Introduction of Other Therapeutic Substance into Lower GI, Percutaneous Approach (ICD-10-PCS; 2017-10-17)
PROC: 0DH60UZ Insertion of Feeding Device into Stomach, Open Approach (ICD-10-PCS; 2017-10-17)
PROC: 0DTG0ZZ Resection of Left Large Intestine, Open Approach (ICD-10-PCS; 2017-10-17)
PROC: 0WQF0ZZ Repair Abdominal Wall, Open Approach (ICD-10-PCS; 2017-10-17)
PROC: 05H533Z Insertion of Infusion Device into Right Subclavian Vein, Percutaneous Approach (ICD-10-PCS; 2017-10-17)
PROC: 0DH63UZ Insertion of Feeding Device into Stomach, Percutaneous Approach (ICD-10-PCS; 2017-10-17)
PROC: 0B110F4 Bypass Trachea to Cutaneous with Tracheostomy Device, Open Approach (ICD-10-PCS; 2017-10-17)
PROC: 0D1L0Z4 Bypass Transverse Colon to Cutaneous, Open Approach (ICD-10-PCS; 2017-10-17)
DX: A41.9 Sepsis, unspecified organism (principal); J18.9 Pneumonia, unspecified organism; J44.0 Chronic obstructive pulmonary disease with (acute) lower respiratory infection; N32.1 Vesicointestinal fistula; J96.21 Acute and chronic respiratory failure with hypoxia; J44.1 Chronic obstructive pulmonary disease with (acute) exacerbation; N30.01 Acute cystitis with hematuria; K65.9 Peritonitis, unspecified; C79.51 Secondary malignant neoplasm of bone; K43.2 Incisional hernia without obstruction or gangrene; C78.00 Secondary malignant neoplasm of unspecified lung; I48.91 Unspecified atrial fibrillation; K63.2 Fistula of intestine; D62 Acute posthemorrhagic anemia; D73.5 Infarction of spleen; E11.9 Type 2 diabetes mellitus without complications; J90 Pleural effusion, not elsewhere classified; D47.3 Essential (hemorrhagic) thrombocythemia; M51.26 Other intervertebral disc displacement, lumbar region; M51.27 Other intervertebral disc displacement, lumbosacral region; E87.5 Hyperkalemia; F41.9 Anxiety disorder, unspecified; F17.210 Nicotine dependence, cigarettes, uncomplicated; M47.9 Spondylosis, unspecified; M48.061 Spinal stenosis, lumbar region without neurogenic claudication; I10 Essential (primary) hypertension; J98.11 Atelectasis; I25.119 Atherosclerotic heart disease of native coronary artery with unspecified angina pectoris; M21.371 Foot drop, right foot; C34.91 Malignant neoplasm of unspecified part of right bronchus or lung; C34.10 Malignant neoplasm of upper lobe, unspecified bronchus or lung; C79.31 Secondary malignant neoplasm of brain; D61.818 Other pancytopenia; E87.4 Mixed disorder of acid-base balance; I71.9 Aortic aneurysm of unspecified site, without rupture; Z53.9 Procedure and treatment not carried out, unspecified reason; E78.5 Hyperlipidemia, unspecified; R64 Cachexia; R65.20 Severe sepsis without septic shock; D68.9 Coagulation defect, unspecified; K66.8 Other specified disorders of peritoneum; R13.10 Dysphagia, unspecified; R26.9 Unspecified abnormalities of gait and mobility; Y95 Nosocomial condition; Y84.2 Radiological procedure and radiotherapy as the cause of abnormal reaction of the patient, or of later complication, without mention of misadventure at the time of the procedure; K59.00 Constipation, unspecified; Z95.5 Presence of coronary angioplasty implant and graft; Z85.72 Personal history of non-Hodgkin lymphomas; Z99.81 Dependence on supplemental oxygen; Z92.3 Personal history of irradiation; Z87.440 Personal history of urinary (tract) infections; I25.2 Old myocardial infarction; Z91.19 Patient's noncompliance with other medical treatment and regimen; Z90.710 Acquired absence of both cervix and uterus; Z86.79 Personal history of other diseases of the circulatory system; Z79.4 Long term (current) use of insulin; Z99.11 Dependence on respirator [ventilator] status; Z85.118 Personal history of other malignant neoplasm of bronchus and lung; Z79.899 Other long term (current) drug therapy; Z82.49 Family history of ischemic heart disease and other diseases of the circulatory system; Z51.5 Encounter for palliative care
CPT/HCPCS: 31500; 36600; 70450; 71010; 71045; 72133; 74018; 74177; 76604; 76937; 76942; 77336; 77412; 77417; 80048; 80048 91; 80053; 80076; 80162; 80202; 81003; 82330; 82803; 82948; 83036; 83605; 83615 91; 83735; 84100; 84157; 84300; 84484; 85014; 85018; 85025; 85027; 85384; 85610; 85730; 86850; 86900; 86901; 86920; 87040; 87070; 87077; 87086; 87106; 87107; 87186; 87205; 87641; 88305; 88307; 89051; 93005; 94002; 94003; 94640; 94640 76; 94667; 94668; 94760; 94799; 97530 GO; 97530 GP; 99202; 99281; 99285; B4087; C1751; C1769; G0378; G8978 GP CM; G8979 GP CK; J1335; J1815; J1940; J2250; J2270; J2543; J2704; J2920; J2930; J3010; J3370; J3475; J7030; J7040; J7050; J8540; P9016; P9017; P9035; P9045; S0028